=== PATIENT | female | born 1980 | race Caucasian/White ===

== ENCOUNTER → 2017-11-02 | Emergency (ER) | payer OTHER ==
[~2017-11-02] VITALS: Ht 165.1 cm; Wt 61.2 kg
== END | disposition home or self-care (01) ==
LOC: ER 19:14
DX: K29.70 Gastritis, unspecified, without bleeding (principal)

== ENCOUNTER 2018-11-14 11:17 | Outpatient (CLI) | payer OTHER ==
[~2018-11-14] VITALS: Ht 152.4 cm; Wt 58.5 kg
== END 2018-11-14 11:30 | disposition home or self-care (01) ==
LOC: OFIC 805 11:17
DX: M26.69 Other specified disorders of temporomandibular joint (principal)

== ENCOUNTER 2023-04-26 12:00 | Outpatient (CLI) | payer OTHER | END 2023-04-26 12:20 | disposition home or self-care (01) | LOC: RAD 12:00 | DX: R05.3 Chronic cough (principal); R06.09 Other forms of dyspnea ==

== ENCOUNTER 2024-05-05 12:54 | Outpatient (CLI) | payer OTHER | END 2024-05-05 13:02 | disposition home or self-care (01) | LOC: MAMO-SONO 12:54 | PROVIDERS: ATTEND Obstetrics & Gynecology | DX: N60.11 Diffuse cystic mastopathy of right breast (principal) ==

== ENCOUNTER 2024-08-28 10:07 | Outpatient (CLI) | payer OTHER | END 2024-08-28 14:48 | disposition home or self-care (01) | LOC: RAD 10:07 | DX: G56.32 Lesion of radial nerve, left upper limb (principal); G56.30 Lesion of radial nerve, unspecified upper limb ==

== ENCOUNTER 2025-07-06 12:55 | Outpatient (CLI) | payer OTHER | END 2025-07-06 12:57 | disposition home or self-care (01) | LOC: RAD 12:55 | DX: M54.42 Lumbago with sciatica, left side (principal) ==